=== PATIENT | male | born 1985 | race American Indian/Alaskan Native ===

== ENCOUNTER 2019-01-17 21:22 | Emergency (ER) | payer SELFPAY ==
--- NOTE | 2019-01-17 21:38 | Emergency Department Report ---
Blank Doc - Documentation Documentation: 33 y o male with pmh of DM,asthma presents to ED today cc of hypergycemia 1 year hx of DM taking 2gm metformin and 30 units insulin daily states recently been feeling more fatigued labs [facility] eval
[2019-01-17 22:29] LABS: Basophils # (Auto) 0.1 K/mm3 (0.0-0.1); Basophils % (Auto) 1.3 % (0.0-1.8); Eosinophils # (Auto) 0.2 K/mm3 (0.0-0.4); Eosinophils % (Auto) 1.7 % (0.0-4.3); Hematocrit 43.6 % (35.5-45.6); Hemoglobin 14.4 gm/dl (11.8-15.2); Lymphocytes # (Auto) 3.6 K/mm3 (1.2-5.4); Lymphocytes % (Auto) 39.1 % (13.4-35.0); Mean Corpuscular HGB Conc 33 % (32-34); Mean Corpuscular Volume 84 fl (84-94); Monocytes # (Auto) 0.5 K/mm3 (0.0-0.8); Monocytes % (Auto) 5.2 % (0.0-7.3); Platelet Count 271 K/mm3 (140-440); Red Blood Count 5.18 M/mm3 (3.65-5.03); Red Cell Distribution Width 13.2 % (13.2-15.2)
[2019-01-17 22:50] LABS: BUN/Creatinine Ratio 15; Blood Urea Nitrogen 12 mg/dL (9-20); Hemolysis Index 16
[2019-01-17] MEDS ORDERED: LACTATED RINGERS 1,000 ML IV ONE (22:59)
[2019-01-17] MEDS ORDERED: LIDOCAINE VISCOUS 2% PO ONE (22:59)
[2019-01-17 23:00] LABS: Bilirubin,Urine NEG (Negative); Blood,Urine NEG (Negative); Color,Urine Yellow (Yellow); Mucus,Urine FEW /HPF; Protein,Urine <15 mg/dL mg/dL (Negative); Urobilinogen,Urine < 2.0 mg/dL (<2.0)
[2019-01-17] MEDS ORDERED: IBUPROFEN PO ONE (23:00)
--- NOTE | 2019-01-17 23:35 | Emergency Department Report ---
ED General Adult HPI - General Chief complaint: Abdominal Pain Stated complaint: R SIDE PAIN/FATIGUE/DRY MOUTH Time Seen by Provider: 01/17/19 21:32 Source: patient Mode of arrival: Ambulatory Limitations: No Limitations - History of Present Illness Initial comments: Patient is a 33-year-old -[place] male with a history of oid-tltylni-hyzyatohc diabetes, hypertension and asthma who presents to the ED with a complaint of acute onset persistent low back pain, painful abscess in the mouth and tongue, and elevated blood sugar with generalized fatigue for the last 3 days. Patient denies dizziness, chest pain, shortness of breath, nausea, vomiting, abdominal pain, fever, chills, cough, dysuria, urinary frequency or urgency, hematuria, syncope or palpitations. MD Complaint: elevated blood sugar, oral ulcers, low back pain -: Sudden, days(s) (3) Severity scale (0 -10): 5 Quality: aching, dull Consistency: constant Improves with: none Worsens with: none Associated Symptoms: malaise, weakness. denies: confusion, chest pain, cough, fever/chills, headaches, loss of appetite, nausea/vomiting, rash, seizure, shortness of breath, syncope Treatments Prior to Arrival: none - Related Data Previous Rx's Medication Instructions Recorded Last Taken Type Cyclobenzaprine [Flexeril] 10 mg PO Q8H PRN #12 tablet 01/17/19 Unknown Rx Ibuprofen [Motrin] 800 mg PO Q8HR PRN #20 tablet 01/17/19 Unknown Rx Lidocaine Viscous 2% 15 ml PO Q4HR PRN #120 ml 01/17/19 Unknown Rx Allergies Allergy/AdvReac Type Severity Reaction Status Date / Time No Known Allergies Allergy Verified 01/17/19 21:25 ED Review of Systems ROS: Stated complaint: R SIDE PAIN/FATIGUE/DRY MOUTH Other details as noted in HPI Comment: All other systems reviewed and negative Constitutional: no symptoms reported, see HPI. denies: chills, diaphoresis, fever, malaise, weakness Eyes: as per HPI. denies: eye pain, eye discharge, vision change ENT: as per HPI. denies: ear pain, throat pain, dental pain, hearing loss, congestion Respiratory: no symptoms reported, see HPI. denies: cough, orthopnea, shortness of breath, SOB with exertion, SOB at rest Cardiovascular: as per HPI. denies: chest pain, palpitations, dyspnea on exertion, edema, syncope, paroxysmal nocturnal dyspnea Endocrine: no symptoms reported, see HPI. denies: excessive sweating, intolerance to cold, intolerance to heat, increased hunger, increased thirst, increased urine, unexplained weight gain, unexplained weight loss Gastrointestinal: as per HPI. denies: abdominal pain, nausea, vomiting, diarrhea, constipation, hematemesis, hematochezia Genitourinary: as per HPI. denies: urgency, dysuria, frequency, hematuria, discharge, testicular pain, testicular mass Musculoskeletal: as per HPI, back pain. denies: joint swelling, arthralgia, myalgia Skin: as per HPI. denies: rash, lesions, change in color, change in hair/nails Neurological: denies: as per HPI, headache, numbness, confusion, abnormal gait Psychiatric: as per HPI. denies: auditory hallucinations, visual hallucinations, homicidal thoughts Hematological/Lymphatic: as per HPI ED Past Medical Hx - Past Medical History Previous Medical History?: Yes Hx Diabetes: Yes Hx Asthma: Yes - Surgical History Past Surgical History?: Yes Additional Surgical History: Right hand surgery - Social History Smoking Status: Never Smoker - Medications Home Medications: Home Medications Medication Instructions Recorded Confirmed Last Taken Type Cyclobenzaprine [Flexeril] 10 mg PO Q8H PRN #12 tablet 01/17/19 Unknown Rx Ibuprofen [Motrin] 800 mg PO Q8HR PRN #20 tablet 01/17/19 Unknown Rx Lidocaine Viscous 2% 15 ml PO Q4HR PRN #120 ml 01/17/19 Unknown Rx ED Physical Exam - General Limitations: No Limitations General appearance: alert, in no apparent distress - Head Head exam: Present: atraumatic, normocephalic, normal inspection - Eye Eye exam: Present: normal appearance, PERRL, EOMI Pupils: Present: normal accommodation - ENT ENT exam: Present: normal exam, normal orophraynx, mucous membranes moist, TM's normal bilaterally, normal external ear exam - Neck Neck exam: Present: normal inspection, full ROM. Absent: tenderness - Respiratory Respiratory exam: Present: normal lung sounds bilaterally. Absent: chest wall tenderness, accessory muscle use, decreased breath sounds - Cardiovascular Cardiovascular Exam: Present: regular rate, normal rhythm, normal heart sounds - GI/Abdominal GI/Abdominal exam: Present: soft, normal bowel sounds. Absent: distended, tend erness, guarding, hyperactive bowel sounds, hypoactive bowel sounds - Rectal Rectal exam: Present: deferred - Extremities Exam Extremities exam: Present: normal inspection, full ROM, normal capillary refill - Back Exam Back exam: Present: tenderness, muscle spasm, paraspinal tenderness (palpable mild lumbosacral paraspinal musculoskeletal tenderness) - Neurological Exam Neurological exam: Present: alert, oriented X3, CN II-XII intact, normal gait, reflexes normal - Psychiatric Psychiatric exam: Present: normal affect - Skin Skin exam: Present: warm, dry, intact, normal color ED Course Vital Signs 01/17/19 01/17/19 21:33 23:09 Temperature 98.3 F Pulse Rate 85 Respiratory 20 18 Rate Blood Pressure 132/76 O2 Sat by Pulse 97 Oximetry - Reevaluation(s) Reevaluation #1: 01/17/19 23:54 Patient is alert and oriented 3 and is not in distress with normal vital signs. Patient was treated for pain in the ED and on reevaluation, the pain in his diarrhea resolved. ED Medical Decision Making - Lab Data Result diagrams: 01/17/19 21:52 01/17/19 21:52 - Medical Decision Making Patient is alert and oriented 3 and is not in distress with normal vital signs. Lab test results were reviewed and are unremarkable except for hyperglycemia. Patient declined treatment with IV fluids to help bring down his blood sugar. Patient was therefore discharged home on pain medications and advised to follow- up with his primary care physician in 7-10 days for reevaluation. Patient is advised to return to the ED immediately if symptoms get worse. - Differential Diagnosis Oral ulcers, Muscle spasm of lower back, hyperglycemia Critical care attestation.: If time is entered above; I have spent that time in minutes in the direct care of this critically ill patient, excluding procedure time. ED Disposition Clinical Impression: Oral ulcer, Spasm of muscle of lower back Hyperglycemia due to type 2 diabetes mellitus Qualifiers: Diabetes mellitus usp insulin use: without long winder tender use Qualified Code(s): E11.65 - Type 2 diabetes mellitus with hyperglycemia Disposition: TO HOME OR SELFCARE Is pt being admited?: No Does the pt Need Aspirin: No Condition: Stable Instructions: Diabetes Mellitus Type 2 in Adults (ED), Muscle Spasm (ED) Additional Instructions: Take medications as needed with food, drink plenty of fluids and follow up with your primary care physician M3 to 5 days for reevaluation. Return to the ED immediately if symptoms get worse. Prescriptions: Cyclobenzaprine [Flexeril] 10 mg PO Q8H PRN #12 tablet PRN Reason: Muscle Spasm Lidocaine Viscous 2% 15 ml PO Q4HR PRN #120 ml PRN Reason: Pain , Severe (7-10) Ibuprofen [Motrin] 800 mg PO Q8HR PRN #20 tablet PRN Reason: PAIN Referrals: RAVI GUEVARA MD [Primary Care Provider] - 3-5 Days Time of Disposition: 23:35 Print Language: ITALIAN
[2019-01-18 00:02] VITALS: BP 120/76
== END 2019-01-17 23:45 | disposition home or self-care (01) ==
LOC: ED 21:22
DX: M62.830 Muscle spasm of back (principal); K12.1 Other forms of stomatitis; E11.65 Type 2 diabetes mellitus with hyperglycemia; J45.909 Unspecified asthma, uncomplicated; Z98.890 Other specified postprocedural states
CPT/HCPCS: 36415; 80048; 81001; 82962; 85025; 99283; J7120